=== PATIENT | male | born 1945 | race Caucasian/White ===

== ENCOUNTER 2021-10-19 09:01 | Day surgery (SDC) | payer MEDICARE ==
[~2021-10-19 09:01] MED LIST: BRIMONIDINE 0.2% OPHTH DROPS 5 ML ONE; BSS/LIDOCAINE/EPINEPHRINE 1 ML VIAL ONE; CYCLOPENTOLATE 1% OPHTH DROPS 2 ML ONE; EPINEPHrine 1 MG/ML AMP ONE; KETOROLAC 0.45% OPHTH DROPS ONE; PHENYLEPHRINE 2.5% OPHTH 2 ML DROPS ONE; PROPARACAINE 0.5% OPHTH DROPS 15 ML ONE; TIMOLOL 0.5% OPHTH DROPS ONE; TRIAMCIN/MOXIFLOX OPHTHALMIC 0.6 ML VIAL IO ONE
[2021-10-19] MEDS ORDERED: LACTATED RINGERS 1,000 ML IV ONE (09:44)
[2021-10-19] MEDS ORDERED: PROPARACAINE 0.5% OPHTH DROPS 15 ML LEFTEYE ONE (09:46)
[2021-10-19] MEDS ORDERED: fentaNYL 100 MCG/2 ML VIAL ONE (10:06)
[2021-10-19] MEDS ORDERED: MIDAZOLAM 2 MG/2 ML VIAL ONE (10:07)
--- NOTE | 2021-10-19 10:12 | ANESTHESIA ---
Pre-Anesthesia VS, & Labs - Diagnosis L cataract - Procedure L PhacoIOL Vital Signs: Temp Pulse Resp BP Pulse Ox 36.5 C 81 16 113/94 H 99 10/19/21 09:45 10/19/21 09:45 10/19/21 09:45 10/19/21 09:45 10/19/21 09:45 Height: 5 ft 11 in Weight (kg): 119.7 kg Body Mass Index: 36.8 BMI Classification: Obese - NPO >8 hours Home Medications and Allergies Home Medications: Ambulatory Orders Amitriptyline [Elavil] 100 mg PO DAILY 10/18/21 LORazepam [Lorazepam] 2 mg PO DAILY 10/18/21 Escitalopram Oxalate 1 tab PO DAILY 10/19/21 Melatonin/Pyridoxine [Melatonin 5 mg Tablet] 1 tab PO HS 10/19/21 OLANZapine [Zyprexa] 20 mg PO HS 10/19/21 Simvastatin [Zocor] 1 tab PO DAILY 10/19/21 Tamsulosin [Flomax] 1 tab PO DAILY 10/19/21 lamoTRIgine [Lamictal] 1 tab PO HS 10/19/21 Amitriptyline [Elavil] 100 mg PO DAILY 10/18/21 LORazepam [Lorazepam] 2 mg PO DAILY 10/18/21 Escitalopram Oxalate 1 tab PO DAILY 10/19/21 Melatonin/Pyridoxine [Melatonin 5 mg Tablet] 1 tab PO HS 10/19/21 OLANZapine [Zyprexa] 20 mg PO HS 10/19/21 Simvastatin [Zocor] 1 tab PO DAILY 10/19/21 Tamsulosin [Flomax] 1 tab PO DAILY 10/19/21 lamoTRIgine [Lamictal] 1 tab PO HS 10/19/21 Allergies/Adverse Reactions: Allergies Allergy/AdvReac Type Severity Reaction Status Date / Time No Known Drug Allergies Allergy Verified 10/19/21 09:51 Anes History & Medical History - Anesthetic History Anesthesia Complications: reports: No previous complications Family history of Anesthesia Complications: Denies Family history of Malignant Hyperthermia: Denies - Medical History Cardiovascular: reports: None Pulmonary: reports: Sleep apnea Gastrointestinal: reports: None Urinary: reports: Benign prostate hypertrophy Musculoskeletal: reports: None Endocrine/Autoimmune: reports: None - Surgical History Eyes Ears Nose Throat (EENT): reports: Cataracts Orthopedic: reports: Spine surgery Exam General: Alert, Oriented x3 Dental: WNL Mouth Openin Fingerbreadth Neck Mobility: Normal Mallampati classification: III Thyromental Distance: 4-6 cm Respiratory: Lungs clear Cardiovascular: Regular rate Plan Anesthesia Type: Total IV Consent for Procedure(s) Verified and Reviewed: Yes Code Status: Attempt Resuscitation ASA classification: 2-Mild systemic disease Is this case an emergency?: No
[2021-10-19] MEDS ORDERED: EPINEPHrine 1 MG/ML AMP IR ONE (10:29)
[2021-10-19] MEDS ORDERED: BRIMONIDINE 0.2% OPHTH DROPS 5 ML OPTH ONE (10:29)
[2021-10-19] MEDS ORDERED: BSS/LIDOCAINE/EPINEPHRINE 1 ML SYRINGE IO ONE (10:30)
[2021-10-19] MEDS ORDERED: TRIAMCIN/MOXIFLOX OPHTHALMIC 0.6 ML VIAL IO ONE (10:30)
[2021-10-19] MEDS ORDERED: TIMOLOL 0.5% OPHTH DROPS OPTH ONE (10:30)
[2021-10-19] MEDS ORDERED: VANCOMYCIN OPHTHALMI 8MG/0.8ML 8 MG/0.8 ML SYRINGE IO ONE (10:31)
[2021-10-19] MEDS ORDERED: PROPARACAINE 0.5% OPHTH DROPS 15 ML EACHEYE ONE (10:31)
[2021-10-19] MEDS ORDERED: LACTATED RINGERS 800 ML IV ONE (10:39)
--- NOTE | 2021-10-19 10:40 | OPERATIVE REPORT ---
Operative Report - Other Other Information/Narrative: Date of Surgery: 10/19/21 Preop Dx: Visually significant cataract left eye. Cataract surgery was performed in the right eye on 2018 elsewhere. Postop Dx: Same Procedure: Phacoemulsification with posterior chamber intraocular lens implant left eye Surgeon: Dr. Ben Daley Anesthesia: Monitored anesthesia care Complications: None Operative Indications: This is a 76-year-old M with progressive vision loss in the left eye due to 4+ nuclear sclerotic, 1+ cortical, 2+ posterior subcapsular, and vacuolar cataract. Best corrected visual acuity was 20/100 with glare to 20/250 vision in the left eye. Indications for surgery were: - Overall decrease in vision - Difficulty seeing words on a computer screen - Difficulty reading - Difficulty seeing words, closed captions, or game scores on TV - Difficulty seeing street signs - Difficulty driving in low light or at night - Difficulty driving at night because of headlights from other vehicles - Difficulty with glare or bright lights in any situation The patient was consented at length concerning the risks and benefits of cataract surgery after which the patient expressed a desire to proceed with surgery. Operative Procedure: The patient was taken into OR#3 and placed under monitored anesthesia care. A surgical time-out was conducted confirming correct patient, correct procedure, and correct surgical site. The patient was given topical anesthesia and then prepped and draped in the usual sterile fashion. The eye was entered at the 6 and 3 oclock positions. Intracameral Shugarcaine was injected into the anterior chamber followed by a dispersive viscoelastic. A continuous-tear curvilinear capsulorhexis was performed. The nucleus was hydrodissected and phacoemulsified. The cortex was evacuated using automated infusion and aspiration. A cohesive viscoelastic was injected into the capsular bag and a 14.5 diopter intraocular lens was inserted into the bag. Infusion and aspiration were used to evacuate the viscoelastic materials from the eye. The wounds were hydrated and the eye inflated to physiologic pressure using balanced salt solution. Approximately 0.25ml of a mixture of triamcinolone and moxifloxacin was injected trans-sclerally into the vitreous in the inferotemporal quadrant using a 30 gauge cannula. An additional 0.55ml of a mixture of triamcinolone, moxifloxacin, and vancomycin was injected subconjunctivally in the superior quadrant for infection and inflammation prophylaxis. Wound integrity was checked with Weck-Krista sponges. The patient was taken from the operating room in good condition and given post-op instructions.
[2021-10-19 11:06] VITALS: BP 122/78
--- NOTE | 2021-10-19 12:56 | ANESTHESIA POST OP EVALUATION ---
Anesthesia Post Eval - Post Anesthesia Eval Vitals: Last Vital Signs Temp 36.5 C 10/19/21 10:57 Pulse 81 10/19/21 10:57 Resp 16 10/19/21 10:57 BP 122/78 10/19/21 10:57 Pulse Ox 94 10/19/21 10:57 CV Function Including HR & BP: Stable Pain Control: Satisfactory Nausea & Vomiting: Negative Mental Status: Baseline Respiratory Status: Airway Patent Hydration Status: Satisfactory Anesthesia Complications: None
== END 2021-10-19 09:02 | disposition home or self-care (01) ==
LOC: SDS 09:01
PROVIDERS: ATTEND Ophthalmology
DX: H25.812 Combined forms of age-related cataract, left eye (principal); N40.0 Benign prostatic hyperplasia without lower urinary tract symptoms; Z79.899 Other long term (current) drug therapy; Z98.41 Cataract extraction status, right eye; F41.9 Anxiety disorder, unspecified; E66.9 Obesity, unspecified; Z68.36 Body mass index [BMI] 36.0-36.9, adult; G47.30 Sleep apnea, unspecified
CPT/HCPCS: 66984; A9270; J3490; J7120

== ENCOUNTER 2023-12-25 03:48 | Outpatient (CLI) | payer MEDICARE | END 2023-12-25 22:27 | disposition EMS.NT | LOC: EMS 03:48 | DX: R53.1 Weakness (principal) ==

== ENCOUNTER 2024-02-17 15:34 | Outpatient (CLI) | payer MEDICARE ==
--- NOTE | 2024-02-18 15:45 | XRAY Report ---
PROCEDURE: Abdomen 2 V INDICATIONS: CONSTIPATION TECHNIQUE: 2 views of the abdomen were acquired. COMPARISON: None. FINDINGS: Surgical changes and devices: Surgical clips are noted in gallbladder fossa.. Bowel: No pneumoperitoneum. The bowel gas pattern is normal. Large amount of fecal matter throughou t the colon is seen. Soft tissues: No masses; visualized solid organ contours appear normal in size. No suspicious abdom inal calcifications. Bones: No suspicious bony abnormalities. IMPRESSION: No bowel obstruction or gross free air. Moderate to severe constipation and fecal impaction. Reviewed by: Artis Diego MD on 02/18/2024 3:44 PM PDT Approved by: Artis Diego MD on 02/18/2024 3:44 PM PDT Station ID: [id number]
== END 2024-02-17 15:35 | disposition home or self-care (01) ==
LOC: DI.S 15:34
PROVIDERS: ATTEND Internal Medicine
DX: K59.00 Constipation, unspecified (principal)